=== PATIENT | male | born 1965 | race Caucasian/White ===

== ENCOUNTER → 2022-08-24 15:04 | Outpatient (CLI) | payer OTHER, SELFPAY ==
--- NOTE | 2022-08-24 | ECG_ITS ---
APPROVED REPORT Exam: Resting ECG HR:82 bpm ECG Measurements Heart Rate 82 AXES MS 153 P 39 QRSd 99 QRS 63 QT 369 T 51 QTc 407 Conclusion SINUS RHYTHM NORMAL ECG UNCONFIRMED REPORT Electronically signed by : Mario Oneal MD 08/24/2022 19:40:07
--- NOTE | 2022-08-24 15:33 | XR_ITS ---
FINAL REPORT CLINICAL HISTORY: CHEST PAIN FINDINGS: PA and lateral views of the chest are obtained. There is no prior exam for comparison. The cardiac and mediastinal silhouettes are within normal limits. The lungs are clear. There is no pleural effusion, pneumothorax, or acute osseous abnormality. IMPRESSION: No radiographic evidence of acute cardiac or pulmonary disease. Reviewed, Interpreted and Dictated by Andree Rey MD Transcribed by Ele Winn Authenticated and [facility]
[2022-08-24 16:49] LABS: Alanine Aminotransferase 23 U/L (12-78); Albumin Level 4.4 g/dl (3.5-5.0); Albumin/Globulin Ratio 1.2 (1.1-1.8); Alkaline Phosphatase 123 U/L (38-126); Anion Gap 12.4 mEq/L (5-15); Aspartate Amino Transferase 35 U/L (17-59); Bilirubin,Total 0.6 mg/dl (0.2-1.3); Blood Urea Nitrogen 14 mg/dl (9-20); Calcium 8.6 mg/dl (8.4-10.2); Carbon Dioxide 29 mmol/L (22.0-30.0); Chloride 106 mmol/L (98-107); Estimated Glomerular Filt Rate 100 ml/min (>60); GFR (African American) 121 ML/MIN (>60); Globulin 3.7 g/dL (1.3-3.2); Glucose 92 mg/dl (74-100); Potassium 4.4 mmoL/L (3.5-5.1); Sodium 143 mmol/L (136-145); Total Protein,Serum 8.1 g/dl (6.3-8.2)
[2022-08-24 17:05] LABS: Troponin I < 0.01 ng/ml (0.00-0.034)
== END ==
PROVIDERS: PCP Family Medicine; Visit Provider Family Medicine
DX: R07.89 Other chest pain (principal)
CPT/HCPCS: 36415; 71046; 80053; 84484; 93005

== ENCOUNTER → 2022-09-02 13:51 | Outpatient (CLI) | payer OTHER, SELFPAY ==
--- NOTE | 2022-09-02 13:58 | CA_ITS ---
APPROVED REPORT EXAM: Comprehensive 2D, Doppler, and color-flow Echocardiogram Flask Maker: Kaylee Michele RVT Ht: 5 ft 5 in Wt: 236lbs BSA: 2.12 BP: 132/67 mmHg Indications: CP,OBESITY,SHINGLES TDS-PT BODY HABITUS 2D Dimensions LVOT 2.51 cm (M/F) 1.5-2.5 LA Volume 48.10 mL LA Volume Index 22.69 mL/m2 (M/F) 16-34 M-Mode Dimensions RVDd 2.59 cm (0.9-2.6) LA Diam 3.26 cm (1.9-4.0) LVDd 6.26 cm (3.5-5.7) Ao Diam 3.40 cm (2.0-3.7) LVDs 4.61 cm (3.5-5.7) IVSd 0.89 cm (0.6-1.1) PWd 0.72 cm (0.6-1.1) EF (Teich) 50.70% FS 26.40% EDV (Teich) 198.30 mL TAPSE 2.22 (<1.7) ESV (Teich) 97.80 mL LV Diastology E Decel Time 150.00 (160-240 msec) E/A Ratio 0.6 MED E' 7.10 (< 7 cm/sec) E'/MED E' Ratio 6.56 (>14) LAT E' 6.00 (<10 cm/sec) E/LAT E' Ratio 7.77 (>14) Aortic Valve AO Peak GR. 3.90 mmHg Mitral Valve MV E Max Isaiah. 47.00 (40-130 cm/s) MV A Velocity 74.00 (40-130 cm/s) E/A Ratio 0.63 MV Decel. Time 150.00 (160-240 ms) MV PHT 44.00 ms Pulmonary Valve PV Peak Velocity 66.00 (50-150 cm/s) Left Ventricle Left atrium is mildly enlarged, left ventricle is normal size mild concentric left ventricular hypertrophy, estimated ejection fraction 55% with no regional wall motion abnormality, grade 1 diastolic dysfunction seen without tissue Doppler evidence of raise left atrial pressure. Right Ventricle Right atrium and right ventricle are mildly enlarged with normal contractility. Aortic Valve Aortic valve is minimally thickened and calcified without significant aortic stenosis or aortic insufficiency. Mitral Valve Mitral valve is grossly normal, there is trace mitral regurgitation. Tricuspid Valve Tricuspid valve grossly normal, there is trace tricuspid regurgitation, tricuspid regurgitation jet velocity is inadequate for calculation of the right ventricular systolic pressure. Pulmonic Valve Pulmonic valve is poorly visualized. Great Vessels Aortic root is normal size. Inferior vena cava is poorly visualized. Pericardium No significant pericardial effusion noted. Conclusion 1. Technically difficult study because of the patient factors and poor acoustic windows. Mild biatrial enlargement, normal left ventricular size, mild concentric left ventricular hypertrophy, estimated ejection fraction 55% with no regional wall motion abnormality, grade 1 diastolic dysfunction seen without tissue Doppler evidence of late left atrial pressure. 2. Mildly enlarged right ventricle with normal contractility. 3. Trace mitral and tricuspid regurgitation. 4. No significant pericardial effusion noted. 5. Inferior vena cava is poorly visualized. Electronically signed by : Rob Shen MD 09/03/2022 06:01:24
--- NOTE | 2022-09-02 14:00 | XR_ITS ---
FINAL REPORT CLINICAL HISTORY: rt hip pain FINDINGS: RIGHT HIP Two views of the right hip including an AP pelvis demonstrate no acute fracture or dislocation. There is left hip arthroplasty. There are severe degenerative changes of the right hip. The visualized bony structures are well aligned. No soft tissue abnormality is seen. IMPRESSION: Left hip arthroplasty. 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 Reviewed, Interpreted and Dictated by Hardik Grace III, MD Transcribed by Lucy Perez Authenticated and [facility]
== END ==
PROVIDERS: PCP Family Medicine; Visit Provider Orthopaedic Surgery
DX: M25.551 Pain in right hip (principal); R07.2 Precordial pain
CPT/HCPCS: 73502; 93306

== ENCOUNTER 2023-07-16 14:21 | Outpatient (CLI) | payer OTHER, SELFPAY ==
--- NOTE | 2023-07-16 14:37 | XR_ITS ---
FINAL REPORT CLINICAL HISTORY: RT HIP PAIN FINDINGS: Right femur Two views were obtained. There is no acute fracture or dislocation. The patient is status post right hip arthroplasty. No soft tissue abnormality is identified. IMPRESSION: No acute process. Reviewed, Interpreted and Dictated by Hardik Grace III, MD Transcribed by Ele Winn Authenticated and [facility]
--- NOTE | 2023-07-16 14:37 | XR_ITS ---
FINAL REPORT CLINICAL HISTORY: RT HIP PAIN R hip replaced february 2023 swelling and redness at incision site soreness FINDINGS: Right hip Three views were obtained. There is no acute fracture or dislocation. The patient is status post bilateral hip arthroplasties. No soft tissue abnormality is identified. IMPRESSION: No acute process. Reviewed, Interpreted and Dictated by Hardik Grace III, MD Transcribed by Ele Winn Authenticated and [facility]
== END 2023-07-16 23:59 ==
LOC: RAD 14:30
PROVIDERS: PCP Family Medicine; Visit Provider Physician Assistant
DX: M25.551 Pain in right hip (principal)
CPT/HCPCS: 73502; 73552